=== PATIENT | female | born 1985 | race Caucasian/White ===

== ENCOUNTER 2018-10-31 09:37 | Outpatient (CLI) | payer BC ==
--- NOTE | 2018-10-31 12:03 | RAD ---
TWO VIEW CHEST: INDICATION: History of smoking. Rule out TB prior to starting psoriasis medication. FINDINGS: Lungs are clear. Heart and mediastinum appear normal. Osseous structures unremarkable. IMPRESSION: Unremarkable chest. POS: [facility]
== END 2018-10-31 09:38 | disposition home or self-care (01) ==
LOC: BICRAD 09:37
PROVIDERS: ATTEND Physician Assistant Medical
DX: L40.0 Psoriasis vulgaris (principal)
CPT/HCPCS: 71046